=== PATIENT | female | born 1965 | race Caucasian/White ===

== ENCOUNTER 2023-08-21 12:02 | Emergency (ER) | payer OTHER ==
[~2023-08-21] VITALS: Ht 162.6 cm; Wt 74.8 kg
[2023-08-21 12:10] VITALS: BP_SYST 120; PULSE 64; RESP 18; TEMP 98.2; O2SAT 95
[2023-08-21] MEDS ORDERED: PIPERACILLIN/TAZO 4.5 GM in NS 100 ML IV ONE (12:15)
[2023-08-21] MEDS ORDERED: PIPERACILLIN/TAZOBACTAM 4.5 GM/VIAL (ZOSYN) IV ONE (12:26)
[2023-08-21] MEDS ORDERED: CLINDAMYCIN 900 mg/50mL D5W 50 ML IV ONE (12:30)
[2023-08-21] MEDS ORDERED: CLINDAMYCIN 600 mg/50mL D5W 50 ML IV ONE (12:34)
[2023-08-21] MEDS ORDERED: CLINDAMYCIN 600 MG in D5W 50 ML IV ONE (12:45)
[2023-08-21 12:57] LABS: BASOPHILS % (AUTO) 0.4 % (0.0-2.0); EOSINOPHILS # (AUTO) 0.1 K/uL (0.0-0.4); EOSINOPHILS % (AUTO) 0.8 % (0.0-4.0); HEMOGLOBIN 13.1 g/dL (12.0-16.0); LYMPHOCYTES # (AUTO) 1.7 K/uL (1.0-5.5); LYMPHOCYTES % (AUTO) 20.1 % (20.5-51.5); MEAN CORPUSCULAR HEMOGLOBIN 29 pg (27-31); MEAN CORPUSCULAR HGB CONC 34 % (32-36); MEAN CORPUSCULAR VOLUME 87 fL (79.0-98.0); MONOCYTES # (AUTO) 0.6 K/uL (0.0-1.0); MONOCYTES % (AUTO) 6.8 % (1.7-9.3); NEUTROPHILS # (AUTO) 6.3 K/uL (1.8-7.7); NEUTROPHILS % (AUTO) 71.9 % (40.0-70.0); PLATELET COUNT (AUTO) 181 K/uL (130-430); RED BLOOD CELL COUNT(AUTO) 4.48 MIL/uL (4.2-6.2); RED CELL DISTRIBUTION WIDTH 12.9 % (9.0-15.0); WHITE BLOOD COUNT (AUTO) 8.7 K/uL (4.8-10.8)
[2023-08-21 13:11] LABS: CREATININE 0.62 mg/dL (0.55-1.30); POTASSIUM 3.5 mmol/L (3.5-5.1)
[2023-08-21] MEDS ORDERED: CLIN-142 PO (14:08)
[2023-08-21] MEDS ORDERED: DOXY100C5 PO (14:08)
[2023-08-21 14:31] VITALS: BP_SYST 117; PULSE 70; RESP 18; TEMP 98.2; O2SAT 95
== END 2023-08-21 14:32 | disposition home or self-care (01) ==
LOC: SED 12:02
DX: L03.113 Cellulitis of right upper limb (principal); Z79.899 Other long term (current) drug therapy
CPT/HCPCS: 99284; 96365; 80048; 85025; 87040; 36415; J3490; J2543

== ENCOUNTER 2023-08-24 10:15 | Inpatient (IN) | payer OTHER ==
[~2023-08-24] VITALS: Ht 162.6 cm; Wt 73.5 kg
[2023-08-24] VITALS (10 sets, daily range): BP systolic 107–175; PULSE 66–81; RESP 18–19; TEMP 97.6–98.3; O2SAT 95–99
[~2023-08-24 10:15] MED LIST: CLIN-142 PO; DOXY100C5 PO
[2023-08-24] MEDS ORDERED: NACL 0.9% 1,000 ML IV ONE (11:15)
[2023-08-24 11:40] LABS: BASOPHILS % (AUTO) 0.6 % (0.0-2.0); EOSINOPHILS # (AUTO) 0.1 K/uL (0.0-0.4); EOSINOPHILS % (AUTO) 1.5 % (0.0-4.0); HEMATOCRIT 38.4 % (36-48); HEMOGLOBIN 12.8 g/dL (12.0-16.0); LYMPHOCYTES # (AUTO) 1.6 K/uL (1.0-5.5); LYMPHOCYTES % (AUTO) 34.5 % (20.5-51.5); MEAN CORPUSCULAR HEMOGLOBIN 29 pg (27-31); MEAN CORPUSCULAR HGB CONC 33 % (32-36); MEAN CORPUSCULAR VOLUME 87 fL (79.0-98.0); MONOCYTES # (AUTO) 0.4 K/uL (0.0-1.0); MONOCYTES % (AUTO) 7.4 % (1.7-9.3); NEUTROPHILS # (AUTO) 2.7 K/uL (1.8-7.7); PLATELET COUNT (AUTO) 188 K/uL (130-430); RED BLOOD CELL COUNT(AUTO) 4.39 MIL/uL (4.2-6.2); RED CELL DISTRIBUTION WIDTH 12.8 % (9.0-15.0); WHITE BLOOD COUNT (AUTO) 4.8 K/uL (4.8-10.8)
[2023-08-24 11:42] LABS: ERYTHROCYTE SEDIMENTATION RATE 18 MM/HR (0-20)
[2023-08-24 11:44] LABS: PROTHROMBIN TIME 10.2 SECS (9.5-12.5)
[2023-08-24 11:45] LABS: ALANINE AMINOTRANSFERASE 35 U/L (12-78); ALBUMIN 3.5 g/dL (3.4-4.8); ANION GAP 7 (5-15); ASPARTATE AMINOTRANSFERASE 18 U/L (10-37); CALCIUM 9.3 mg/dL (8.4-11.0); CARBON DIOXIDE 28 mmol/L (23-29); CHLORIDE 105 mmol/L (98-107); CREATININE 0.58 mg/dL (0.55-1.30); GFR AFRICAN AMERICAN 138 mL/min (>90); GFR NON AFRICAN-AMERICAN 114 mL/min (>90); GLUCOSE 96 mg/dL (74-106); SODIUM SERUM 140 mmol/L (136-145); TOTAL BILIRUBIN 0.3 mg/dL (0.0-1.0); UREA NITROGEN, BLOOD 13 mg/dL (8-21)
[2023-08-24 11:55] LABS: BILIRUBIN,URINE NEGATIVE (NEGATIVE); BLOOD, URINE NEGATIVE (NEGATIVE); CLARITY/URINE CLEAR (CLEAR); COLOR,URINE YELLOW (YELLOW); GLUCOSE,URINE NEGATIVE (NEGATIVE); KETONES,URINE NEGATIVE (NEGATIVE); LEUKOCYTE ESTERASE ,URINE NEGATIVE (NEGATIVE); NITRITE, URINE NEGATIVE (NEGATIVE); PROTEIN URINE NEGATIVE (NEGATIVE); UROBILINOGEN,URINE 0.2 (0.2-1.0)
[2023-08-24] MEDS ORDERED: LEVO25CA4 PO (12:52)
[2023-08-24] MEDS ORDERED: BUPIVACAINE /PF 0.25% 30 ML VIAL INJ ONE (13:35)
[2023-08-24] MEDS ORDERED: PROPOFOL 200MG/ 20ML VIAL (DIPRIVAN) IV ONE (13:35)
[2023-08-24] MEDS ORDERED: NS 1000 ML IV.SOLN IV ONE (13:35)
[2023-08-24] MEDS ORDERED: KETOROLAC TROMETHAMINE 30 MG VIAL ONE (13:35)
[2023-08-24] MEDS ORDERED: fentaNYL CITRATE/PF 100 MCG/2 ML AMP ONE (13:40)
[2023-08-24] MEDS ORDERED: ACETAMINOPHEN I.V. 1000 MG 100 ML IV ONE (13:40)
[2023-08-24] MEDS ORDERED: MIDAZOLAM HCL 2 MG/2 ML VIAL (VERSED) ONE (13:40)
[2023-08-24] MEDS ORDERED: VANCOMYCIN 1 GM/NS 250 ML PREMIX BAG IV ONE (14:49)
[2023-08-24] MEDS ORDERED: ACETAMINOPHEN 325 MG TABLET PO PRN ×2 (17:45→18:30)
[2023-08-24] MEDS ORDERED: LORazepam 2 MG/ML VIAL IVP PRN (17:45)
[2023-08-24] MEDS ORDERED: ONDANSETRON HCL 4 MG/2 ML VIAL IVP PRN (17:45)
[2023-08-24] MEDS ORDERED: NALOXONE HCL 0.4 MG/ML AMP (NARCAN) IVP PRN ×2 (17:45)
[2023-08-24] MEDS: D5/0.45 NS 1,000 ML IV SCH (19:00)
[2023-08-24] MEDS: HYDROcodone/ACETAMIN 5-325 MG TAB (NORCO/ VICODIN) PO PRN (20:50)
[2023-08-24] MEDS: ceFAZolin SODIUM 2 GM in D5W 100 ML IV SCH (22:05)
[2023-08-25] MEDS: HYDROcodone/ACETAMIN 5-325 MG TAB (NORCO/ VICODIN) PO PRN ×8 (00:46→23:39)
[2023-08-25 00:56] VITALS: BP_SYST 100; PULSE 68; RESP 20; TEMP 98.4; O2SAT 100
[2023-08-25] MEDS: D5/0.45 NS 1,000 ML IV SCH ×2 (05:25→16:33)
[2023-08-25] MEDS: ceFAZolin SODIUM 2 GM in D5W 100 ML IV SCH ×2 (05:51→17:11)
[2023-08-25] MEDS: LEVOTHYROXINE SODIUM 0.025 MG TABLET PO SCH (06:07)
[2023-08-25 06:09] LABS: BASOPHILS % (AUTO) 0.4 % (0.0-2.0); EOSINOPHILS % (AUTO) 0.7 % (0.0-4.0); HEMATOCRIT 36.3 % (36-48); HEMOGLOBIN 11.9 g/dL (12.0-16.0); LYMPHOCYTES # (AUTO) 1.7 K/uL (1.0-5.5); LYMPHOCYTES % (AUTO) 28.5 % (20.5-51.5); MEAN CORPUSCULAR HEMOGLOBIN 29 pg (27-31); MEAN CORPUSCULAR HGB CONC 33 % (32-36); MEAN CORPUSCULAR VOLUME 88 fL (79.0-98.0); MONOCYTES # (AUTO) 0.4 K/uL (0.0-1.0); MONOCYTES % (AUTO) 6.9 % (1.7-9.3); NEUTROPHILS # (AUTO) 3.8 K/uL (1.8-7.7); NEUTROPHILS % (AUTO) 63.5 % (40.0-70.0); PLATELET COUNT (AUTO) 187 K/uL (130-430); RED BLOOD CELL COUNT(AUTO) 4.15 MIL/uL (4.2-6.2); RED CELL DISTRIBUTION WIDTH 12.5 % (9.0-15.0); WHITE BLOOD COUNT (AUTO) 5.9 K/uL (4.8-10.8)
[2023-08-25 06:28] LABS: CALCIUM 8.9 mg/dL (8.4-11.0); CREATININE 0.57 mg/dL (0.55-1.30); POTASSIUM 4.1 mmol/L (3.5-5.1)
[2023-08-25 08:30] VITALS: BP_SYST 131; PULSE 90; RESP 18; TEMP 97.9; O2SAT 96
[2023-08-25 12:30] VITALS: BP_SYST 122; PULSE 85; RESP 18; TEMP 96.8; O2SAT 97
[2023-08-25 20:00] VITALS: BP_SYST 107; PULSE 71; RESP 18; TEMP 98.4; O2SAT 95; O2SAT 96
[2023-08-26] VITALS: BP_SYST 109; PULSE 74; RESP 16; TEMP 98.2; O2SAT 96
[2023-08-26] MEDS: D5/0.45 NS 1,000 ML IV SCH ×2 (01:00→11:46)
[2023-08-26 05:09] LABS: ERYTHROCYTE SEDIMENTATION RATE 14 MM/HR (0-20)
[2023-08-26 05:16] LABS: BASOPHILS % (AUTO) 0.4 % (0.0-2.0); EOSINOPHILS # (AUTO) 0.1 K/uL (0.0-0.4); EOSINOPHILS % (AUTO) 1.5 % (0.0-4.0); HEMATOCRIT 36.3 % (36-48); LYMPHOCYTES # (AUTO) 1.8 K/uL (1.0-5.5); LYMPHOCYTES % (AUTO) 37.2 % (20.5-51.5); MEAN CORPUSCULAR HEMOGLOBIN 29 pg (27-31); MEAN CORPUSCULAR HGB CONC 33 % (32-36); MEAN CORPUSCULAR VOLUME 87 fL (79.0-98.0); MONOCYTES # (AUTO) 0.4 K/uL (0.0-1.0); MONOCYTES % (AUTO) 9.1 % (1.7-9.3); NEUTROPHILS # (AUTO) 2.6 K/uL (1.8-7.7); NEUTROPHILS % (AUTO) 51.8 % (40.0-70.0); PLATELET COUNT (AUTO) 194 K/uL (130-430); RED BLOOD CELL COUNT(AUTO) 4.16 MIL/uL (4.2-6.2); RED CELL DISTRIBUTION WIDTH 12.7 % (9.0-15.0); WHITE BLOOD COUNT (AUTO) 4.9 K/uL (4.8-10.8)
[2023-08-26 05:36] LABS: ALBUMIN 3.1 g/dL (3.4-4.8); CALCIUM 8.9 mg/dL (8.4-11.0); CREATININE 0.56 mg/dL (0.55-1.30); POTASSIUM 3.4 mmol/L (3.5-5.1); TOTAL BILIRUBIN 0.3 mg/dL (0.0-1.0); TOTAL PROTEIN, SERUM 6.5 g/dL (6.4-8.3)
[2023-08-26] MEDS: HYDROcodone/ACETAMIN 5-325 MG TAB (NORCO/ VICODIN) PO PRN ×2 (06:47→11:43)
[2023-08-26] MEDS: LEVOTHYROXINE SODIUM 0.025 MG TABLET PO SCH (06:48)
[2023-08-26 08:30] VITALS: BP_SYST 104; PULSE 85; RESP 16; TEMP 97.9; O2SAT 94
[2023-08-26] MEDS ORDERED: ceFAZolin SODIUM 2 GM in D5W 100 ML IV ONE (14:00)
[2023-08-26 14:13] VITALS: BP_SYST 104; PULSE 85; RESP 15; TEMP 97.9; O2SAT 94
== END 2023-08-26 18:15 | disposition home or self-care (01) | DRG 580 ==
LOC: SED 10:15 → SMU 12:50
PROVIDERS: ADMIT Preventive Medicine Preventive Medicine/Occupational Environmental Medicine; ATTEND Preventive Medicine Preventive Medicine/Occupational Environmental Medicine
PROC: 0JBJ0ZZ Excision of Right Hand Subcutaneous Tissue and Fascia, Open Approach (ICD-10-PCS; principal; 2023-08-24 13:45)
DX: L02.511 Cutaneous abscess of right hand (principal); L03.113 Cellulitis of right upper limb; R73.9 Hyperglycemia, unspecified; E03.9 Hypothyroidism, unspecified; Z88.0 Allergy status to penicillin; Z79.2 Long term (current) use of antibiotics; Z79.899 Other long term (current) drug therapy
CPT/HCPCS: 36415; 71045; 80048; 80053; 81001; 81003; 83605; 84484; 85025; 85610-TC; 85651-TC; 85730-TC; 87040; 87070-TC; 87075-TC; 87081; 87086; 87186-TC; 93005; 96360; 99285; J0131; J1885; J2704; J3010; J3370; J3465; J3490; J7030; J7060